=== PATIENT | male | born 2000 | race American Indian/Alaskan Native ===

== ENCOUNTER 2020-11-14 12:40 | Day surgery (SDC) | payer MEDICAID ==
[~2020-11-14 12:40] MED LIST: ACETAMINOPHEN 500 MG TAB PO SCH; LACTATED RINGERS 1,000 ML IV SCH; MIDAZOLAM 2 MG/2 ML INJ IV NR
[2020-11-14] MEDS ORDERED: ceFAZolin/STERILE WATER 2 GM/20 ML SYRINGE IV NR (13:00)
[2020-11-14] MEDS ORDERED: HEPARIN 5,000 UNIT/1 ML VIAL SUB-Q NR (13:00)
[2020-11-14] MEDS ORDERED: ceFAZolin/Water 2 GM/20 ML 2 GM/20 ML SYRINGE IV ONE (13:08)
[2020-11-14] MEDS ORDERED: HEPARIN 5,000 UNIT/1 ML VIAL ONE (13:08)
--- NOTE | 2020-11-14 14:04 | Anesthesia Consultation ---
Anesthesia Consult and Med Hx Date of service: 11/14/20 - Airway Anesthetic Teeth Evaluation: Good ROM Head & Neck: Adequate Mental/Hyoid Distance: Adequate Mallampati Class: Class II Intubation Access Assessment: Good - Pulmonary Exam CTA: Yes - Cardiac Exam Cardiac Exam: RRR - Pre-Operative Health Status ASA Pre-Surgery Classification: ASA2 Proposed Anesthetic Plan: General, MAC - Pulmonary Hx Smoking: No Hx Pneumonia: Yes (2014) Hx Sleep Apnea: No - Central Nervous System Hx Psychiatric Problems: No - Other Systems Hx Alcohol Use: No Hx Substance Use: No Hx Cancer: No
--- NOTE | 2020-11-14 14:05 | Anesthesia Day of Surgery ---
Anesthesia Day of Surgery - Day of Surgery Patient Examined: Yes Patient H&P Reviewed: Yes Patient is NPO: Yes
[2020-11-14] MEDS ORDERED: SCOPOLAMINE TRANSDERMAL PATCH 72 HR TD NR (15:00)
[2020-11-14] MEDS ORDERED: MIDAZOLAM 2 MG/2 ML INJ ONE (15:00)
[2020-11-14] MEDS ORDERED: LIDOCAINE 1%/EPINEPHRINE 1:100,000 VIAL (20 ML) INFILTRATI ONE ×2 (15:00→15:32)
[2020-11-14] MEDS ORDERED: propofoL 200 MG/20 ML VIAL IV ONE ×2 (15:01→15:36)
[2020-11-14] MEDS ORDERED: LIDOCAINE MPF (2%) 20 MG/1 ML VIAL 5 ML ONE (15:14)
[2020-11-14] MEDS ORDERED: KETAMINE/STERILE WATER 50 MG/ML SYRINGE ONE (15:22)
[2020-11-14] MEDS ORDERED: SODIUM CHLORIDE 0.9% IRR 1,500 ML BOTTLE IR ONE (15:32)
--- NOTE | 2020-11-14 15:52 | Procedure Note ---
Date of procedure: 11/14/20 Pre-op diagnosis: Right ear keloid, 2.5 cm Post-op diagnosis: same Procedure: Excision of right ear keloid, 2.5 cm Description of procedure: Pt was placed supine on the OR table. MAC anesthesia was administered. Right ear and face were prepped and draped. The 2.5 cm keloid on the posterior ear was excised with a scalpel. Hemostasis was obtained with the Bovie. The 1.5 cm keloid on the anterior ear was excised, also with the scalpel. Surgicel was applied to the open wound followed by a dry 4 X 4 which was secured with silk tape. Pt tolerated the procedure well and was taken to PACU in stable condition. Anesthesia: MAC Surgeon: JEREMIAH ALEMAN Estimated blood loss: minimal Pathology: list (Right ear keloid) Specimen disposition: to lab Condition: stable Disposition: PACU
[2020-11-14 16:18] VITALS: BP 119/62
--- NOTE | 2020-11-14 16:19 | Post Anesthesia Evaluation ---
- Post Anesthesia Evaluation Patient Participated: Yes Airway Patent: Yes Stable Respiratory Function: Yes Nausea/Vomiting: No Temp > 96.8F: Yes Pain Manageable: Yes Adequeate Hydration: Yes Anesthesia Complications: No
== END 2020-11-14 16:55 | disposition home or self-care (01) ==
LOC: OR 12:40
PROVIDERS: ATTEND Surgery
DX: L91.0 Hypertrophic scar (principal); Z79.899 Other long term (current) drug therapy; Z98.890 Other specified postprocedural states; Z20.822 Contact with and (suspected) exposure to COVID-19
CPT/HCPCS: 11443; 88305; J0690; J1644; J2250; J2704; J3490; J7120; U0003